=== PATIENT | female | born 1980 | race Two or more races ===

== ENCOUNTER 2020-01-14 07:10 | Inpatient (IN) | payer SELFPAY ==
[~2020-01-14] VITALS: Ht 160 cm; Wt 62.7 kg
--- NOTE | 2020-01-14 07:35 | NUR ---
patient came in to the er c/o cough and sob on and off x 6 days. on room air, connected to the monitor and puls eox. kept comfortable, will continue to monitor accordingly.
[2020-01-14 07:59] LABS: BASOPHILS % (AUTO) 0.2 % (0.0-2.0); EOSINOPHILS % (AUTO) 0.1 % (0.0-6.0); HEMATOCRIT 37 % (33-45); HEMOGLOBIN 11.5 g/dL (11.5-14.8); LYMPHOCYTES # (AUTO) 1.1 /CMM (0.8-4.8); LYMPHOCYTES % (AUTO) 17.9 % (20.0-44.0); MEAN CORPUSCULAR HGB CONC 31 g/dl (31.0-36.0); MEAN CORPUSCULAR VOLUME 75 fL (82-100); MONOCYTES # (AUTO) 0.3 /CMM (0.1-1.30); MONOCYTES % (AUTO) 5.1 % (2.0-12.0); NEUTROPHILS # (AUTO) 4.9 /CMM (1.8-8.9); NEUTROPHILS % (AUTO) 76.7 % (43.0-81.0); PLATELET COUNT (AUTO) 216 /CMM (150-450); RED BLOOD CELL COUNT(AUTO) 4.91 MIL/uL (4.0-5.2); WHITE BLOOD COUNT (AUTO) 6.3 K/uL (4.3-11.0)
[2020-01-14] MEDS ORDERED: ALBUTEROL SULFATE INH 18 GM HFA.AER.AD IH PRN ×2 (08:00→11:00)
--- NOTE | 2020-01-14 08:04 | NUR ---
covid specimen collected and sent to lab
[2020-01-14 08:13] LABS: CALCIUM, SERUM 8.5 mg/dL (8.5-10.1); CREATININE 0.8 mg/dL (0.6-1.3); POTASSIUM 3.8 mmol/L (3.5-5.1)
[2020-01-14 08:19] LABS: ALBUMIN 2.7 g/dL (3.4-5.0); BILIRUBIN,TOTAL 0.1 mg/dL (0.2-1.0); TOTAL PROTEIN, SERUM 7.4 g/dL (6.4-8.2)
--- NOTE | 2020-01-14 08:31 | NUR ---
[facility].
--- NOTE | 2020-01-14 08:50 | NUR ---
CALLED NURSING SUP FOR BED. NO ANSWER. WILL CALL BACK IN 5 MINUTES.
[2020-01-14 09:11] LABS: ABG BASE EXCESS 0.2 mmol/L; ABG OXYGEN SATURATION 95.3 % (92.0-98.5); ABG PCO2 32.1 mmHg (35.0-45.0); ABG PH 7.476 (7.350-7.450); ABG PO2 75.8 mmHg (75.0-100.0); AaDO2 35.5 mmHg; COHb 0.2 % (0.5-1.5); MetHb 0.4 % (0.0-1.5); O2Hb 94.7 % (94.0-97.0); SITE, ABG Right Radial; VENT MODE, BG ROOM AIR
--- NOTE | 2020-01-14 10:33 | NUR ---
BED ASSIGN 101
[2020-01-14] MEDS ORDERED: MAGNESIUM HYDROXIDE 30 ML UDC PO PRN (11:00)
[2020-01-14] MEDS ORDERED: Z GUARD REMEDY 2 OZ OINT TP PRN (11:00)
[2020-01-14] MEDS ORDERED: MAG HYDROX/AL HYDROX/SIMETH 30 ML UDC PO PRN (11:00)
[2020-01-14] MEDS ORDERED: ONDANSETRON 4 MG TAB.RAPDIS SL PRN (11:00)
--- NOTE | 2020-01-14 11:02 | NUR ---
report given to Gwen NUNEZ for autumn.
--- NOTE | 2020-01-14 11:34 | NUR ---
wheeled patient via gurney accompanied by RN and emt in no distress. RN at bedside to assume care.
[2020-01-14 12:00] VITALS: BP 90/33
[2020-01-14 12:08] VITALS: BP 90/33
--- NOTE | 2020-01-14 12:18 | NUR ---
AIRCONDITIONING PLANT OPERATOR NOTE RECEIVED PATIENT FROM ER WITH DX R\O COVID , UNDER CARE DR SULLIVAN, ALERT ORIENTED X3 ,PLACED ON TELE SR HR 90 , ALL NEEDS ATTENDED , LT AC HL INTACT , PLACED ON 2L NC,NOTED SLIGHT SOB AT THIS TIME , BED IN LOWEST AND LOCKED POSITION , CALL LIGHT WITHIN REACH. WILL CONT TO MONITOR
[2020-01-14] MEDS: AZITHROMYCIN 500 MG in IV D5W 250 ML IV SCH (12:48)
[2020-01-14 12:49] LABS: C-REACTIVE PROTEIN 8.6 mg/dL (0.0-0.9)
--- NOTE | 2020-01-14 14:01 | NUR ---
FUNDRAISING DIRECTOR NOTE ROUND MADE ALL NEEDS ATTENDED .SAT 100% ON 2L NC ,NO SOB AT THIS TIME
[2020-01-14 16:00] VITALS: BP 103/60
[2020-01-14] MEDS: HYDROXYCHLOROQUINE 200 MG TABLET PO SCH (18:07)
[2020-01-14] MEDS: ACETAMINOPHEN 325 MG TABLET PO PRN (18:17)
--- NOTE | 2020-01-14 18:50 | NUR ---
PROFESSOR OF LITERACY NOTE C\O HEADACHE AND NOTED T 100.3 TYLENOL PO GIVEN ,SAT 100% BP105/78 HR110 , WILL CONT O MONITOR
[2020-01-14 20:00] VITALS: BP 91/49
--- NOTE | 2020-01-14 20:00 | NUR ---
BLOCKER AND POLISHER GOLD WHEEL NOTE - RECEIVED PATIENT IN BED DX R\O COVID, ALERT ORIENTED X3, PLACED ON TELE SR HR 90S, ALL NEEDS ATTENDED, LEFT AC 18G INTACT , PT ON 2L NC,NOTED SLIGHT SOB AT THIS TIME PT WITH DRY COUGH, BED IN LOWEST AND LOCKED POSITION , CALL LIGHT WITHIN REACH. WILL CONT TO MONITOR
[2020-01-15] VITALS: BP 95/53
[2020-01-15 04:00] VITALS: BP 101/53
[2020-01-15 06:43] LABS: BASOPHILS % (AUTO) 0.2 % (0.0-2.0); HEMATOCRIT 33 % (33-45); HEMOGLOBIN 10.2 g/dL (11.5-14.8); LYMPHOCYTES # (AUTO) 0.8 /CMM (0.8-4.8); LYMPHOCYTES % (AUTO) 19.2 % (20.0-44.0); MEAN CORPUSCULAR HGB CONC 31 g/dl (31.0-36.0); MEAN CORPUSCULAR VOLUME 75 fL (82-100); MONOCYTES # (AUTO) 0.2 /CMM (0.1-1.30); MONOCYTES % (AUTO) 5.6 % (2.0-12.0); NEUTROPHILS # (AUTO) 3.2 /CMM (1.8-8.9); PLATELET COUNT (AUTO) 223 /CMM (150-450); RED BLOOD CELL COUNT(AUTO) 4.44 MIL/uL (4.0-5.2); WHITE BLOOD COUNT (AUTO) 4.3 K/uL (4.3-11.0)
[2020-01-15 07:02] LABS: ALBUMIN 2.4 g/dL (3.4-5.0); BILIRUBIN,DIRECT 0.1 mg/dL (0.0-0.2); BILIRUBIN,TOTAL 0.1 mg/dL (0.2-1.0); CALCIUM, SERUM 8.2 mg/dL (8.5-10.1); MAGNESIUM 1.7 mg/dL (1.8-2.4); PHOSPHORUS 2.9 mg/dL (2.5-4.9); TOTAL PROTEIN, SERUM 6.9 g/dL (6.4-8.2)
--- NOTE | 2020-01-15 07:30 | NUR ---
MANAGER INTERVENTIONAL NOTES RECEIVED REPORT FROM ARMAMENT REPAIRER. PT AAO X 3,ON 2L O2 NASAL CANULA, NOT IN DISTRESS, OCCASIONAL DRY COUGH, SINUS TACH ON MONITOR HR 103, DENIES PAIN, LEFT AC G 18 IV ACCESS FLUSHES WELL, SITE CLEAR. AMBULATES TO BATHROOM, ON REGULAR DIET. NO SKIN ISSUES. ISOLATION PRECAUTION OBSERVED, AWAITING COVID TEST RESULT. PLAN OF CARE DISCUSSED WITH PATIENT, VERBALIZED UNDERSTANDING. CALL LIGHT WITHIN REACH, WILL MONITOR CLOSELY.
[2020-01-15 08:00] VITALS: BP_SYST 87; BP_SYST 94; BP_DIAS 36; BP_DIAS 52
[2020-01-15] MEDS: HYDROXYCHLOROQUINE 200 MG TABLET PO SCH ×2 (08:14→16:57)
--- NOTE | 2020-01-15 09:30 | NUR ---
THEATRE ARTS PROFESSOR NOTES' DUE MEDS GIVEN
[2020-01-15 10:11] LABS: IRON, SERUM 13 ug/dl (50-175); TOTAL IRON BINDING CAPACITY 232 ug/dl (250-450)
[2020-01-15] MEDS: AZITHROMYCIN 500 MG in IV D5W 250 ML IV SCH (11:08)
[2020-01-15] MEDS: MAGNESIUM OXIDE 400 MG TABLET PO SCH ×2 (11:08→21:03)
[2020-01-15 12:00] VITALS: BP_SYST 87; BP_SYST 94; BP_DIAS 48; BP_DIAS 52
--- NOTE | 2020-01-15 14:53 | NUR ---
PACKAGE CRIMPER NOTES RECEIVED CALL FROM LAB. PATIENT COVID [address] SULLIVAN. NO NEW ORDER.
[2020-01-15 16:00] VITALS: BP 99/54
--- NOTE | 2020-01-15 18:33 | NUR ---
LITHOGRAPHIC RETOUCHER APPRENTICE CLOSING NOTES PATIENT RESTING. PT AAO X 3,ON 2L O2 NASAL CANULA, NOT IN DISTRESS, OCCASIONAL DRY COUGH, SINUS TACH ON MONITOR HR 108, DENIES PAIN, LEFT AC G 18 IV ACCESS FLUSHES WELL, SITE CLEAR. AMBULATES TO BATHROOM, ON REGULAR DIET. NO SKIN ISSUES. ISOLATION PRECAUTION OBSERVED, MAINTAIN ON CONTINUOUS PULSE OX. ALL NEEDS MET. CALL LIGHT WITHIN REACH, WILL ENDORSE TO NEXT SHIFT FOR HERNANDEZ.
--- NOTE | 2020-01-15 19:00 | NUR ---
RN OPENING NOTES Received patient asleep on bed, easily awaken. On O2 inhalation via NC @ 2LPM, saturating well, no SOB/respiratory distress noted. Afebrile. With occasional non-productive cough noted. On tele monitor with NSR noted. Kept on bed clean, clean, and comfortable. Call light within easy reach. Will continue to monitor accordingly.
[2020-01-15 20:00] VITALS: BP 99/57
[2020-01-15] MEDS: HYDROCODONE/APAP 5/325MG 1 EACH TABLET PO PRN (21:03)
[2020-01-16] VITALS: BP 85/46
[2020-01-16 04:00] VITALS: BP 88/45
[2020-01-16] MEDS: ACETAMINOPHEN 325 MG TABLET PO PRN ×2 (05:55→08:54)
--- NOTE | 2020-01-16 06:25 | NUR ---
RN CLOSING NOTES Patient asleep on bed easily awaken. On O2 inhalation via NC @ 2LPM, saturating 100%. PRN meds given for pain, noted effective. No SOB/respiratory distress noted. All nursing needs attended. On contact and airborne precautions, observed by all HCPs. Afebrile the whole shift. Kept on bed clean, dry and comfortable. Call light within easy reach. Endorsed.
[2020-01-16 06:31] LABS: BASOPHILS % (AUTO) 0.3 % (0.0-2.0); EOSINOPHILS % (AUTO) 0.2 % (0.0-6.0); HEMATOCRIT 31 % (33-45); HEMOGLOBIN 9.8 g/dL (11.5-14.8); LYMPHOCYTES # (AUTO) 1.1 /CMM (0.8-4.8); LYMPHOCYTES % (AUTO) 25.2 % (20.0-44.0); MEAN CORPUSCULAR HGB CONC 31 g/dl (31.0-36.0); MEAN CORPUSCULAR VOLUME 75 fL (82-100); MONOCYTES # (AUTO) 0.3 /CMM (0.1-1.30); MONOCYTES % (AUTO) 7.1 % (2.0-12.0); NEUTROPHILS % (AUTO) 67.2 % (43.0-81.0); PLATELET COUNT (AUTO) 240 /CMM (150-450); WHITE BLOOD COUNT (AUTO) 4.5 K/uL (4.3-11.0)
[2020-01-16 06:46] LABS: CREATININE 0.7 mg/dL (0.6-1.3); PHOSPHORUS 3.3 mg/dL (2.5-4.9); POTASSIUM 4.1 mmol/L (3.5-5.1)
--- NOTE | 2020-01-16 07:40 | NUR ---
ms rn received on bed, awake,alert,oriented x4,not in any form of distress, respirations even and unlabored,no sob noted,isolation for covid positive, all needs attended.
[2020-01-16 08:00] VITALS: BP 97/46
--- NOTE | 2020-01-16 08:00 | NUR ---
ms salazar breakfast served,due meds given, tolerated well.
[2020-01-16] MEDS: HYDROXYCHLOROQUINE 200 MG TABLET PO SCH ×2 (08:54→17:24)
[2020-01-16] MEDS: HYDROCODONE/APAP 5/325MG 1 EACH TABLET PO PRN (08:55)
[2020-01-16] MEDS ORDERED: AZIT250T13 PO (09:54)
--- NOTE | 2020-01-16 10:00 | NUR ---
ms rn was seen by daina lubin/ order to take o2 sat at room air if ok then sent her home.
--- NOTE | 2020-01-16 11:00 | NUR ---
ms rn was seen by dr. christiana peres/ orders made and carriedout.
[2020-01-16] MEDS: IV NS 0.9% 1,000 ML IV PRN ×2 (12:19→20:30)
[2020-01-16] MEDS: AZITHROMYCIN 500 MG in IV D5W 250 ML IV SCH (12:19)
--- NOTE | 2020-01-16 14:00 | NUR ---
ms rn r/a o2sat 87% only discharge order cancelled.
[2020-01-16] MEDS: SOD FERRIC GLUC 125 MG in IV NS 0.9% 100 ML IV SCH (17:24)
--- NOTE | 2020-01-16 18:20 | NUR ---
ms rn on bed, all needs attended.
--- NOTE | 2020-01-16 19:00 | NUR ---
tear down worker opening notes Received Pt from morning nurse. Pt is resting in bed comfortably. Pt is alert and orientedX4. Respiration is normal in 2 L NC. No SOB. O2 sat is 100%. No S/S of distress noted. Tele monitor showed SR HR @ 78 bpm. Iv sites at LAc# 18 is clean, intact, patent and SL. Contact and airborne precautions are maintained. Bed at low position, brakes locked, side rails upX2 and call light is within reach. Will continue to monitor.
[2020-01-16 20:00] VITALS: BP 97/56
[2020-01-16 20:55] VITALS: BP 97/56
[2020-01-16] MEDS: MAGNESIUM OXIDE 400 MG TABLET PO SCH (21:18)
[2020-01-17] VITALS: BP 99/57
[2020-01-17 04:00] VITALS: BP 100/54
--- NOTE | 2020-01-17 06:33 | NUR ---
engineer rf deployment closing notes Pt is resting in bed comfortably. Pt is alert and orientedx4. Respiration is normal in 2 L NC. No SOB. No S/S of distress noted. VS is stable. Afebrile. Tele monitor showed SR HR at 63 bpm. Routine meds were given as ordered. Kept Pt clean, dry and comfortable. All needs met and attended. Safety precautions is maintained. Contact and airborne precautions are maintained. Bed at low position, brakes locked, side rails upX2 and call light is within reach. Will endorse to morning nurse for HERNANDEZ.
--- NOTE | 2020-01-17 07:20 | NUR ---
RN NOTES PATIENT IN BED ALERT ORIENTED X 3.NO ACUTE DISTRESS NOTED. BREATHING UNLABORED. SAFETY MEASURES IN PLACE. CONTACT AND DROPLET PRECAUTION IN PLACE. CALL LIGHT WITHIN REACH. WILL CONTINUE TO MONITOR ACCORDINGLY.
[2020-01-17 08:00] VITALS: BP 94/52
[2020-01-17] MEDS: HYDROXYCHLOROQUINE 200 MG TABLET PO SCH ×2 (09:49→16:44)
--- NOTE | 2020-01-17 10:00 | NUR ---
RN O2 NOTES O2 SATURATION 99% ON 2LPM VIA NASAL CANULA.
[2020-01-17] MEDS: IV NS 0.9% 1,000 ML IV PRN (10:50)
[2020-01-17] MEDS: AZITHROMYCIN 250 MG TABLET PO SCH (11:51)
[2020-01-17 12:00] VITALS: BP 90/69
--- NOTE | 2020-01-17 12:00 | NUR ---
RN NOTES O2 SATURATION @ 100 % ON 2LPM VIA NASALCANULA.
[2020-01-17] MEDS: SOD FERRIC GLUC 125 MG in IV NS 0.9% 100 ML IV SCH (13:10)
--- NOTE | 2020-01-17 14:00 | NUR ---
RN NOTES O2 SATURATION 100% @ 2LPM VIA NASAL CANNULA. NO ACUTE DISTRESS NOTED.
[2020-01-17 16:00] VITALS: BP 102/65
--- NOTE | 2020-01-17 16:00 | NUR ---
RN NOTES O2 SATURATION 100% @ 2LPM VIA NASAL CANNULA. NO ACUTE DISTRESS NOTED.
--- NOTE | 2020-01-17 18:00 | NUR ---
RN NOTES O2 SATURATION 98% @ 2LPM VIA NASAL CANNULA. NO ACUTE DISTRESS NOTED.
--- NOTE | 2020-01-17 18:48 | NUR ---
RN NOTES PATIENT IN BED ALERT ORIENTED X 3.NO ACUTE DISTRESS NOTED. BREATHING UNLABORED. CONTACT AND DROPLET PRECAUTION IN PLACE. NEEDS ATTENDED AND ANTICIPATED. KEPT CLEAN DRY AND COMFORTABLE. SAFETY MEASURES IN PLACE. CALL LIGHT WITHIN REACH. WILL ENDORSE TO NIGHT NURSE FOR CONTINUITY OF CARE.
--- NOTE | 2020-01-17 19:30 | NUR ---
VESSEL SLAGMAN NOTES RECEIVED PATIENT ALERT AWAKE ORIENTED X4. BREATHING NORMAL NO SOB NOTED, RESPIRATION EVEN NON LABORED. TELE MONITOR SHOWING SR RHYTHM IN 70'S. ON OXYGEN 2L/M VIA NC SATURATING IN 98%. PATIENT IS CONTINENT WITH B&B. ON REGULAR DIET. CONTINUES ON ISOLATION. LAC#18 INTACT PATIENT FLUSHING WELL. ALL SAFETY MEASURES IN PLACE, CALL LIGHT WITHIN REACH. WILL CONT WITH HERNANDEZ.
[2020-01-17 20:00] VITALS: BP 107/77
[2020-01-17] MEDS: MAGNESIUM OXIDE 400 MG TABLET PO SCH (21:54)
--- NOTE | 2020-01-17 22:00 | NUR ---
PROGRAM MANAGER SLP NOTES OXYGEN SATURATION 100% PATIENT IS ON OXYGEN 2L/MIN VIA NASAL CANNULA.
[2020-01-18] VITALS (7 sets, daily range): BP systolic 102–124; BP diastolic 61–80
--- NOTE | 2020-01-18 | NUR ---
PRODUCTION TEAM LEADER NOTES OXYGEN SATURATION 100% PATIENT IS ON OXYGEN 2L/MIN VIA NASAL CANNULA.
--- NOTE | 2020-01-18 02:00 | NUR ---
OUTER DIAMETER GRINDER NOTES OXYGEN SATURATION 99% PATIENT IS ON OXYGEN 2L/MIN VIA NASAL CANNULA.
[2020-01-18] MEDS: IV NS 0.9% 1,000 ML IV PRN ×2 (03:13→16:11)
--- NOTE | 2020-01-18 04:00 | NUR ---
BRIM POUNCER MACHINE OPERATOR NOTES OXYGEN SATURATION 100% PATIENT IS ON OXYGEN 2L/MIN VIA NASAL CANNULA.
--- NOTE | 2020-01-18 06:46 | NUR ---
LEATHER DRIER NOTES PATIENT RESTED WELL THROUGH OUT THE NIGHT. BREATHING NORMAL NO SOB NOTED. SKIN WARM AND DRY TO TOUCH. ROUTINE MEDICATIONS WERE GIVEN ORDERED TOLERATED WELL. DENIES ANY PAIN OR DISCOMFORT. ON TELE MONITOR SHOWS SR IN 70'S. CONTINUES ON ISOLATION. PRECAUTIONS. ALL SAFETY MEASURES IN PLACE, CALL LIGHT WITHIN REACH, SIDE RAILS UP X2. WILL ENDORSE PATIENT TO DAY SHIFT NURSE FOR HERNANDEZ.
--- NOTE | 2020-01-18 08:00 | NUR ---
WIRE BRUSH MAKER OPENING NOTES RECEIVED PT IN BED, AWAKE, ALERT AND ORIENTED X4. PT IS A YOUNG 39 Y/O FEMALE. POSITIVE FOR COVID. PT IS PLEASANT, COOPERATIVE. AND AMBULATORY. NO CARDIAC OR RESP DISTRESS NOTED. NO SOB NOTED AT THIS TIME. SATURATING AT 98% ON 2L. BREATHING EVEN AND UNLABORED. PT ON TELE MONITOR SHOWING SINUS RHYTHM IN 80s. PT DOES REPORT THAT SHE IS STILL HAVING SOME DRY COUGH SHE REPORTS THAT AT TIMES, IT BECOMES PAINFUL AND IRRITATES HER THROAT TO COUGH. ALTHOUGH PT IS AFEBRILE. TEMP NOTED TO BE AT 98.7. PT CONTINUES TO BE ON CONTACT/DROPLET PRECAUTIONS FOR COVID-19. IV ACCESS NOTED ON L AC G18 WITH NS RUNNING AT 70ML/HR. TOLERATING IV FLUIDS WELL. SAFETY PRECAUTIONS IN PLACE. BED LOCKED AND IN LOW POSITION. SIDE RAILS UP. WILL CONT TO MONITOR.
[2020-01-18] MEDS: HYDROCODONE/APAP 5/325MG 1 EACH TABLET PO PRN ×3 (08:12→20:37)
[2020-01-18] MEDS: HYDROXYCHLOROQUINE 200 MG TABLET PO SCH ×2 (08:13→16:05)
[2020-01-18] MEDS: AZITHROMYCIN 250 MG TABLET PO SCH (11:04)
--- NOTE | 2020-01-18 12:00 | NUR ---
TITRATION FROM O2 SUCCESSFUL TITRATION OFF O2. PT WAS WEANED OFF OXYGEN. SHE IS SATURATING WELL WITH OUT O2. I HAVE ALREADY WEANED HER OFF FOR AN HOUR NOW AND SHE IS SATURATING AT 98-99% WITHOUT ANY DIFFICULTY BREATHING OR SOB.
[2020-01-18] MEDS: SOD FERRIC GLUC 125 MG in IV NS 0.9% 100 ML IV SCH (13:44)
--- NOTE | 2020-01-18 14:00 | NUR ---
SATURATION ON ROOM AIR PT STILL SATURATING WELL ON ROOM AIR AT 98-99%. NO SOB NOTED. PT STILL REPORTS COUGH. SHE STATES THAT IT HURTS A LOT TO COUGH ON HER CHEST AND THROAT ESPECIALLY, SINCE ITS VERY DRY. WHICH THEN CAUSES HER TO GET A HEADACHE. OFFERED AND ADMINISTERED NORCO 5/325, PT VERBALIZED RELIEF.
--- NOTE | 2020-01-18 18:23 | NUR ---
VETERINARY MICROBIOLOGIST CLOSING NOTES PT IN BED, ASLEEP AND RESTING COMFORTABLY. PT IS A YOUNG 39 Y/O FEMALE. POSITIVE FOR COVID. PT IS PLEASANT, COOPERATIVE. AND AMBULATORY. NO CARDIAC OR RESP DISTRESS NOTED. NO SOB NOTED AT THIS TIME. SATURATING AT 98% ON ROOM AIR. SUCCESSFULLY TITRATED O2 DOWN DURING SHIFT. PT SATURATING WELL ON ROOM AIR. BREATHING EVEN AND UNLABORED. PT ON TELE MONITOR SHOWING SINUS RHYTHM IN 80s. PT STILL REPORTS DRY COUGH. ALTHOUGH PT IS AFEBRILE. PT CONTINUES TO BE ON CONTACT/DROPLET PRECAUTIONS FOR COVID-19. IV ACCESS NOTED ON L AC G18 WITH NS RUNNING AT 70ML/HR. TOLERATING IV FLUIDS WELL. SAFETY PRECAUTIONS IN PLACE. BED LOCKED AND IN LOW POSITION. SIDE RAILS UP. WILL ENDORSE TO NEXT SHIFT. .
--- NOTE | 2020-01-18 19:20 | NUR ---
MS RN RECEIVE PT A/O X 4 ON CARDIAC MONITORING, SR 85'S RESPIRATIONS EVEN AND UNLABORED, STABLE. NO S/S OF DISTRESS, 02 SAT 100%. MAINTAINS ISOLATION. SAFETY MEASURES AT ALL TIMES. WILL CONT TO MONITOR
[2020-01-18] MEDS: MAGNESIUM OXIDE 400 MG TABLET PO SCH (22:20)
[2020-01-19] VITALS: BP 101/53
[2020-01-19 01:00] VITALS: BP 101/53
[2020-01-19 05:00] VITALS: BP 98/58
[2020-01-19] MEDS: IV NS 0.9% 1,000 ML IV PRN (06:08)
--- NOTE | 2020-01-19 06:09 | NUR ---
EDI DEVELOPER PT SLEPT WELL, MONITORED ACCORDINGLY. NO SIGNIFICANT CHANGES THROUGHOUT THE SHIFT. ALL NEEDS ATTENDED AND ANTICIPATED, KEPT CLEAN, DRY AND COMFORTABLE. REMAINS 2LPM VIA NC 02 SAT 98%. ON CARDIAC MONITORING SR 90 HR IN TELE MONITOR. NO C/O OF PAIN AT THIS TIME. NURSING CARE RENDERED. SAFETY MEASURES AT ALL TIMES. WILL CONT TO ENDORSE POC
--- NOTE | 2020-01-19 07:25 | NUR ---
SOCK TURNER OPENING NOTES RECEIVED PT IN BED, ASLEEP, EASILT AROUSED. A/O X4. PT ON SUPPLEMENTARY OXYGEN AT 2LPM, WITH NO ACUTE RESPIRATORY DISTRESS NOTED. PT DENIES PAIN OR ANY DISCOMFORT AT THIS TIME. PT DENIES ANY CONCERNS AT THIS TIME WELL. ON TELEMONITORING WITH SR 79. IVF NS AT 75ML/HR TO LAC G18, INTACT AND FLUID INFUSING WELL. PT KEPT COMFORTABLE IN BED. PT'S BED IN LOWEST, LOCKED POSITION WITH SR X3. CALL LIGHT KEPT WITHIN REACH. WILL CONTINUE PLAN OF CARE.
[2020-01-19 08:00] VITALS: BP 106/66
[2020-01-19] MEDS: HYDROXYCHLOROQUINE 200 MG TABLET PO SCH (08:35)
[2020-01-19 09:00] VITALS: BP 106/66
[2020-01-19] MEDS ORDERED: AZITHROMYCIN 250 MG TABLET PO SCH (09:10)
[2020-01-19] MEDS ORDERED: SOD FERRIC GLUC 125 MG in IV NS 0.9% 100 ML IV SCH (09:17)
[2020-01-19] MEDS: ACETAMINOPHEN 325 MG TABLET PO PRN (10:20)
--- NOTE | 2020-01-19 11:30 | NUR ---
RN NOTES RN VERIFIED WITH HOSPITALIST/KR REGARDING DISCHARGE OF PT TODAY AND RETESTING FOR COVID PER PT'S CONCERN. PER MD NO NEED TO RETEST, JUST COVID QUARANTINE FOR 14 DAYS AND LAST ANTIBIOTIC TODAY GIVEN TO PT. NO ANTIBIOTICS TO GO HOME. CHARGE NURSE/ANTHONY AWARE WELL.
[2020-01-19 12:00] VITALS: BP 115/65
--- NOTE | 2020-01-19 12:58 | NUR ---
SHOE ASSOCIATE NOTES PT TO DISCHARGE HOME. PT TOLERATING RA, WITH NO ACUTE RESPIRATORY DISTRESS NOTED. PT DENIES ANY PAIN OR DISCOMFORT AT THE TIME OF DISCHARGE. PT'S SKIN INTACT, NO PICTURES TAKEN AND FILED. DISCHARGE INSTRUCTIONS AND INVENTORY LIST REVIEWED AND SIGNED BY PT. ALL BELONGINGS WITH THE PT. TAP CARD PROVIDED. ALL NEEDS AND CARE ATTENDED AND PROVIDED. VS STABLE. HOSPITALIST/MD/SWATHI AWARE OF DISCHARGE AND CHARGE NURSE/ANTHONY. JUAN CARLOS ESCORTED TO THE PT TO THE [facility], AMBULATORY.
== END 2020-01-19 12:57 | disposition home or self-care (01) | DRG 177 ==
LOC: ER 07:13 → MEDSG1 10:33 → TELE1 11:19
PROVIDERS: ADMIT Internal Medicine; ATTEND Internal Medicine
DX: U07.1 COVID-19 (principal); J12.89 Other viral pneumonia; J96.01 Acute respiratory failure with hypoxia; E44.0 Moderate protein-calorie malnutrition; E88.09 Other disorders of plasma-protein metabolism, not elsewhere classified; Z68.24 Body mass index [BMI] 24.0-24.9, adult; I95.9 Hypotension, unspecified
CPT/HCPCS: 36415; 36600; 71045-TC; 80048-TC; 80053-TC; 80076-TC; 82550-TC; 82728-TC; 83540-TC; 83605-TC; 83615-TC; 83735-TC; 84100-TC; 85025-TC; 85378-TC; 86140-TC; 87081-TC; A6253; G0378; J0456; J2916; J7030; J7050; J7060; U0002

== ENCOUNTER 2023-09-06 13:24 | Emergency (ER) | payer OTHER ==
[~2023-09-06] VITALS: Ht 160 cm; Wt 57.2 kg
[~2023-09-06 13:24] MED LIST: AZIT250T13 PO
[2023-09-06 13:28] VITALS: BP 137/84; TEMP 97.9; O2SAT 100
== END 2023-09-06 13:56 ==
LOC: ER 13:31
DX: S00.83XA Contusion of other part of head, initial encounter (principal); F17.200 Nicotine dependence, unspecified, uncomplicated; Z79.899 Other long term (current) drug therapy; Z60.2 Problems related to living alone; Y04.0XXA Assault by unarmed brawl or fight, initial encounter; Y93.89 Activity, other specified; Y92.89 Other specified places as the place of occurrence of the external cause; Y99.8 Other external cause status